=== PATIENT | female | born 2000 | race Caucasian/White ===

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

== ENCOUNTER 2024-07-01 09:50 | Emergency (ER) | payer OTHER ==
[~2024-07-01] VITALS: Ht 157.5 cm; Wt 77.3 kg
[2024-07-01 09:55] VITALS: BP 134/90; PULSE 78; RESP 20; TEMP 98.2; O2SAT 100
[2024-07-01] MEDS ORDERED: AMOX-457 PO (11:04)
[2024-07-01] MEDS: AMOX TR/POT CLAV 875 MG/125 MG TABLET PO ONE (11:34)
== END 2024-07-01 11:55 | disposition home or self-care (01) ==
LOC: EMS 09:50
DX: H66.91 Otitis media, unspecified, right ear (principal); R68.83 Chills (without fever)
CPT/HCPCS: 99283